=== PATIENT | male | born 1950 | race Caucasian/White ===

== ENCOUNTER 2018-04-25 06:43 | Day surgery (SDC) | payer OTHER ==
[~2018-04-25] VITALS: Ht 180.3 cm; Wt 72.1 kg
[~2018-04-25 06:43] MED LIST: TRAMADOL HCL50 MG ORAL; ceFAZolin 1gm in D5W 55ml IVP ONE; celeBREX 200mg Cap **SURGERY PATIENTS ONLY ORAL ONE; oxyCONTIN 20mg tab ORAL ONE
[2018-04-25 07:24] VITALS: BP 146/63
--- NOTE | 2018-04-25 10:47 | Pre-Procedure Note/Attestation ---
Pre-Procedure Note/Attestation Complete Prior to Procedure Planned Procedure: right Procedure Narrative: lamin SAMAYOA ligament reconstruction Indications for Procedure Pre-Operative Diagnosis: right shoulder ac sprain Attestation I attest that I discussed the nature of the procedure; its benefits; risks and complications; and alternatives (and the risks and benefits of such alternatives ), prior to the procedure, with the patient (or the patient's legal insurance claims representative). I attest that, if there was a reasonable possibility of needing a blood transfusion, the patient (or the patient's legal insurance claims representative) was given the [facility] standardized written summary, pursuant to the [place] Blood Safety Act ([place] Health and Safety Code # 1645, as amended). I attest that I re-evaluated the patient just prior to the surgery and that there has been no change in the patient's H&P, except as documented below: Ross Galicia MD Apr 25, 2018 10:47
--- NOTE | 2018-04-25 10:49 | Operative Note - PDOC ---
Operative Note Operative Note Pre-op Diagnosis: right shoulder ac sprain Procedure: see op report Post-op Diagnosis: same as pre-op plus Operative Findings: consistent w/pre-op dx studies Anesthesia: regional Specimen: none Complications: none Condition: stable Estimated Blood Loss: none Implant(s) used?: Yes Ross Galicia MD Apr 25, 2018 10:49
[2018-04-25] MEDS ORDERED: Norco 5mg/325mg tab ORAL PRN (11:00)
[2018-04-25] MEDS ORDERED: HYDROmorphone 1mg/ml Carpuject SUBQ PRN (11:00)
[2018-04-25] MEDS ORDERED: D5 1/2NS 1,000 ML IV SCH (11:00)
[2018-04-25] MEDS ORDERED: Tylenol #3 tab (300mg/30mg) ORAL PRN (11:00)
[2018-04-25] MEDS ORDERED: fentaNYL 100 mcg/2 mL IV ONE (11:32)
[2018-04-25] MEDS ORDERED: Midazolam 2mg/2ml Inj ONE (11:32)
[2018-04-25] MEDS ORDERED: Zemuron 50mg/5ml Inj IV ONE (11:34)
[2018-04-25] MEDS ORDERED: Succinylcholine 20mg/ml 10ml vial ONE (11:34)
[2018-04-25] MEDS ORDERED: Ropivacaine 5mg/ml Vial 30ml INJ ONE (12:17)
[2018-04-25] MEDS ORDERED: Bupivacaine 0.25% Inj 30ml INJ ONE (12:17)
[2018-04-25] MEDS ORDERED: EPINEPHrine 1mg/1ml Amp ONE (12:17)
[2018-04-25] MEDS ORDERED: NS Irrig 4000ml IRRIG ONE (12:30)
[2018-04-25] MEDS ORDERED: Sterile Water Irrig 1000ml IRRIG ONE (12:30)
[2018-04-25] MEDS ORDERED: Propofol 200mg/20ml IV ONE (12:30)
[2018-04-25] MEDS ORDERED: NS Irrig 1000ml ONE (12:30)
[2018-04-25] MEDS ORDERED: LR 1000ml ONE (12:30)
--- NOTE | 2018-04-25 12:33 | Anethesia Preoperative Eval ---
Anesthesia Pre-op PMH/ROS General Date of Evaluation: Apr 25, 2018 Time of Evaluation: 12:29 Anesthesiologist: Neyda ASA Score: ASA 3 Mallampati Score Class I : Soft palate, uvula, fauces, pillars visible Class II: Soft palate, uvula, fauces visible Class III: Soft palate, base of uvula visible Class IV: Only hard plate visible Mallampati Classification: Class II Surgeon: Grayson Diagnosis: R shoulder pain Surgical Procedure: R shoulder scope Anesthesia History: none Social History: current smoker Family History: no anesthesia problems Allergies: Coded Allergies: No Known Allergies (Unverified , 04/25/18) Medications: see eMAR Past Medical History Cardiovascular: Reports: HTN - borderline; Denies: CAD, OR, valve dz, arrhythmia, other Pulmonary: Denies: asthma, COPD, BAHMAN, other Gastrointestinal/Genitourinary: Reports: GERD, other - Hep. C; Denies: CRI, ESRD Neurologic/Psychiatric: Denies: dementia, CVA, depression/anxiety, TIA, other Endocrine: Denies: DM, hypothyroidism, steroids, other HEENT: Denies: cataract (L), cataract (R), glaucoma, [place] (L), [place] (R), other Hematology/Immune: Denies: anemia, DVT, bleeding disorder, other Musculoskeletal/Integumentary: Denies: OA, RA, DJD, DDD, edema, other PMH Narrative: as above PSxH Narrative: Cholecystectomy, Dental extraction Anesthesia Pre-op Phys. Exam Physician Exam Last Vital Signs Date Time Temp Pulse Resp B/P (MAP) Pulse Ox O2 Delivery O2 Flow Rate FiO2 04/25/18 07:25 Room Air 04/25/18 07:24 97.0 78 18 146/63 (90) 98 97.0 Constitutional: NAD Neurologic: CN 2-12 intact Cardiovascular: RRR, no M/R/G Respiratory: CTA Gastrointestinal: S/NT/ND Airway Exam Mallampati Score: Class II MO: full Neck: flexible ROM: limited Teeth: missing Dentures: upper, lower Anesthesia Pre-op A/P Labs see chart Studies Pre-op Studies: EKG - NSR Risk Assessment & Plan Assessment: ASA 3 Plan: GA with ETT R brachial plexus block for postoperative pain control Status Change Before Surgery: No Pre-Antibiotics Drug: Ancef 1gr. Given Within 1 Hr of Incision: Yes Time Given: 12:51 Scooter Faye MD Apr 25, 2018 12:33
[2018-04-25] MEDS ORDERED: LR 1000ml 1,000 ML IVLG SCH (14:03)
[2018-04-25] MEDS ORDERED: Meperidine 50mg/ml Inj(FOR RIGORS ONLY) IV PRN (14:15)
[2018-04-25] MEDS ORDERED: Midazolam 2mg/2ml Inj IVP PRN (14:15)
[2018-04-25] MEDS ORDERED: DiphenhydrAMINE 50mg/ml Inj IVP PRN (14:15)
[2018-04-25] MEDS ORDERED: fentaNYL 100 mcg/2 mL IV PRN (14:15)
[2018-04-25] MEDS ORDERED: Glycopyrrolate 0.2mg/ml 1ml Vial ONE (14:18)
[2018-04-25] MEDS ORDERED: Ketorolac 30mg Inj ONE (14:19)
[2018-04-25 15:28] VITALS: BP 115/75
[2018-04-25 15:33] VITALS: BP 111/67
[2018-04-25 15:38] VITALS: BP 109/59
--- NOTE | 2018-04-25 15:42 | Immediate Post-Op Evaluation ---
Immediate Post-Op Evalulation Immediate Post-Op Evalulation Procedure: R shoulder arthroscopy AC ligament repair Date of Evaluation: Apr 25, 2018 Time of Evaluation: 15:40 IV Fluids: 1200` Blood Products: none Estimated Blood Loss: <50 Urinary Output: none Blood Pressure Systolic: 111 Blood Pressure Diastolic: 67 Pulse Rate: 86 Respiratory Rate: 20 O2 Sat by Pulse Oximetry: 99 Temperature (Fahrenheit): 97.9 Pain Score (1-10): 1 Nausea: No Vomiting: No Complications none Patient Status: awake, patent, extubated, none Hydration Status: adequate Scooter Faye MD Apr 25, 2018 15:42
[2018-04-25 16:11] VITALS: BP 124/76
--- NOTE | 2018-04-25 16:11 | 48 Hour Post Anesthesia Eval ---
Post Anesthesia Evaluation Procedure: R shoulder arthroscopy AC ligament repair Date of Evaluation: Apr 25, 2018 Time of Evaluation: 16:10 Blood Pressure Systolic: 124 0: 76 Pulse Rate: 68 Respiratory Rate: 20 Temperature (Fahrenheit): 97.6 O2 Sat by Pulse Oximetry: 98 Airway: patent Nausea: No Vomiting: No Pain Intensity: 2 Hydration Status: adequate Cardiopulmonary Status: stable Mental Status/LOC: patient returned to baseline Follow-up Care/Observations: n/a Post-Anesthesia Complications: none Follow-up care needed: ready to discharge Scooter Faye MD Apr 25, 2018 16:11
--- NOTE | 2018-04-25 19:31 | Operative Note - Dictated ---
DATE OF OPERATION: 04/25/2018 PRE-OPERATIVE DIAGNOSIS: Right shoulder grade 3 acromioclavicular joint sprain. POST-OPERATIVE DIAGNOSES: 1. Right shoulder grade 3 acromioclavicular joint sprain. 2. Right shoulder partial rotator cuff tear. 3. Right shoulder subacromial impingement with bursitis. PROCEDURES: 1. Right shoulder diagnostic arthroscopy. 2. Right shoulder subacromial decompression bursectomy. 3. Right shoulder coracoclavicular ligament reconstruction with tibialis anterior allograft. 4. Open AC joint resection. SURGEON: Ross Galicia M.D. ANESTHESIA: Interscalene with general. INDICATION FOR PROCEDURE: The patient is a pleasant gentleman who has had a significant injury to the right shoulder, still with significant pain and discomfort, elected to undergo right shoulder arthroscopy and CA ligament reconstruction with tibialis anterior allograft. Risks, limitations, expectations, and complications of the procedure were discussed in detail. All questions addressed. DESCRIPTION OF PROCEDURE: After informed consent was obtained, the patient was brought to the operating room. The patient was placed under general anesthesia. Interscalene with general anesthesia was placed. The patient was then positioned in beach chair position. Right shoulder was prepped and draped in a sterile manner. At this point, with shoulder abduction and external rotation, there was clicking and prominence with pain along the AC joint. There was gross instability with anterior, posterior, inferior, superior focal pressure on the clavicle. Posterior portal was established. Trocar was introduced into the shoulder joint. There was no significant chondral damage. Some fraying of the superior labrum and anterior labrum. Biceps tendon appeared to be intact. The undersurface of the rotator cuff had a partial articular-sided rotator cuff tear. The camera was then placed in the subacromial space. There was hypertrophic bursal tissue that was debrided. The undersurface of the acromion was identified. Acromioplasty was started with scalloping from lateral to medial, completed from posterior to anterior. Once that was completed, the bursal side of the rotator cuff was assessed, noted to be intact. Therefore, it was felt that no formal repair was required of the rotator cuff. Once the arthroscopy was completed, the instruments were removed. The anterior skin incision placed on the AC joint down to the coracoid was made. Subcutaneous tissue flaps were created. The deltoid was incised along the fascial plane. Once that was done, the coracoid process was identified. A passing suture was then placed from medial to lateral, and two FiberTapes along with the tibialis anterior allograft was passed in. At this point, attention turned towards the distal clavicle. Distal clavicle was well visualized. Approximately 5 mm of distal clavicle was resected to prevent further impingement on the dorsum of AC joint. At this point, a 7.5 mm hole was placed in the midshaft of the clavicle at the base of the anatomic location of the trapezoid ligament. The FiberTape was then used in a nicole-cross pattern around the clavicle to keep it in place and cinch it down. Once that was done, the tibialis anterior allograft was then passed through the hole to give the bone both posterior and superior stability, and the bone ligament was then reattached to remnants of the acromion. The wound was copiously irrigated. The distal clavicle was nice and stable. was approximated with #1 Vicryl suture, skin was approximated with 2-0 Vicryl suture and 3-0 Monocryl sutures. Steri-Strips and a sterile dressing were applied. The patient was awoken and taken to recovery room with stable signs. ESTIMATED BLOOD LOSS: None. COMPLICATIONS: None. SPECIMENS: None. IMPLANTS: Tibialis anterior allograft and two #2 FiberTape. Ross Galicia M.D. DR: GALLITO JOB#: [id number] CC:
== END 2018-04-25 16:25 | disposition home or self-care (01) ==
LOC: SUR 06:43
DX: S43.51XA Sprain of right acromioclavicular joint, initial encounter (principal); M75.101 Unspecified rotator cuff tear or rupture of right shoulder, not specified as traumatic; M75.41 Impingement syndrome of right shoulder; M71.9 Bursopathy, unspecified; I10 Essential (primary) hypertension; K21.9 Gastro-esophageal reflux disease without esophagitis; Z86.19 Personal history of other infectious and parasitic diseases; F17.210 Nicotine dependence, cigarettes, uncomplicated
CPT/HCPCS: 29823; 29999; J0171; J0330; J0690; J1885; J2250; J2704; J3010; J3490; J7120; 94003; 94150